=== PATIENT | female | born 1960 | race Caucasian/White ===

== ENCOUNTER → 2023-12-15 12:38 | Outpatient (REF) | payer OTHER, SELFPAY | LOC: HWRAD 12:38 | PROVIDERS: ATTENDING PHYSICIAN Nurse Practitioner Family; FAMILY PHYSICIAN Family Medicine | DX: C73 Malignant neoplasm of thyroid gland (principal); E89.0 Postprocedural hypothyroidism | CPT/HCPCS: 76536 ==

== ENCOUNTER 2024-03-22 09:12 | Emergency (ER) | payer OTHER, SELFPAY ==
[2024-03-22 09:19] VITALS: BP 124/81
--- NOTE | 2024-03-22 10:13 | ED.GENMED ---
History of Present Illness
General
Chief Complaint: Musculo-Skeletal Complaint
Source: patient
Exam Limitations: none
Time Seen by Provider: 03/22/24 09:55
Nursing documentation reviewed up to this point in time: agreed with
Travel History
Have you had any contact with someone who has COVID-19?: No
Do you have any symptoms of coronavirus? Fever > 100 degrees, chills, cough, shortness of breath, sore throat, loss of taste or smell, muscle aches, or headache?: No
History of Present Illness
History of Present Illness:
Patient is a 63-year-old [id number] female presents to the emergency department with pain in her distal left index finger after closing a door yesterday. It continues to throb and is getting worse.
Past History
Past History
ED Past Medical History: Cancer and Hypothyroidism
Social History
Tobacco: Non-smoker
Review of Systems
Review of Systems
All Other Systems: Not applicable
Phy Exam
Physical Exam
Physical Exam:
Physical Exam
General: mild distress, alert and appropriate, well nourished, well hydrated
HENT: Normocephalic, supple
Eyes: Clear sclera, conjuctiva without injection
Neuro: Alert and oriented x 3, CN II - XII intact, no motor focality, no cerebellar dysfunction
Skin: no wounds
Psychiatric: well kept. interactive and cooperative
Extremities: No edema, cyanosis. Left index finger with 10% subungual hematoma approximately with tenderness and swelling noted of the distal third. Neurovascularly tendons intact
Course
Orders/Labs/Results
Orders:
Orders
03/22/24 09:47
Finger(s)/Thumb 2 View Lt [CR Finger(s)/thumb Min 2 Vw Lt] Urgent
Comment:
Reason For Exam: slammed in door
Indicate Which Finger:: Index Finger
Vital Signs
Initial and Last Documented VS:
Initial Vital Signs
Temp Pulse Resp BP Pulse Ox
97.4 F 86 20 124/81 95
03/22/24 09:19 03/22/24 09:19 03/22/24 09:19 03/22/24 09:19 03/22/24 09:19
Last Documented Vital Signs
Temp Pulse Resp BP Pulse Ox
97.4 F 86 20 124/81 95
03/22/24 09:19 03/22/24 09:19 03/22/24 09:19 03/22/24 09:19 03/22/24 09:19
Procedures
Nail Trepanation/Felon
Method of Drainage: nail cauterized
Sterile dressing applied: Yes
Finger splint applied: No
*Radiology
Radiology exam reviewed: preliminary read by ED provider (No fracture)
*Pulse Oximetry
Patient hypoxic: no
*EKG
Interpreted by ED Provider?: NA
*Coater Operator Insulation Board Interpretation
Rate: Coater Operator Insulation Board- N/A
*Critical Care Note
Total Time (30-74mins, 75-104mins- exclusive of procedures): Not Applicable
ED Attending Note
-
Portions of this chart may have been created with voice recognition software.� Occasional wrong word or��sound alike� substitutions may have occurred due to the inherent limitations of voice recognition software.
Discharge Plan
Departure
Patient Disposition: Home (Routine Discharge)
Date of Disposition: 03/22/24
Time of Disposition: 10:17
Patient with high blood pressure during this ER visit?: No
Condition: Good
Covid-19: Not Applicable
Discharge Problem:
Subungual hematoma of finger of left hand
Instructions: Contusion (DC)
Prescriptions:
No Action
alprazolam 0.25 MG tablet
0.25 mg PO BID PRN (Reason: anxiety)
lorazepam 0.5 MG tablet
0.5 mg PO NOW PRN (Reason: anxiety)
docusate sodium 100 MG capsule
100 mg PO BID PRN (Reason: constipation)
clobetasol-emollient 30 GM cream
30 gm TP BID
adalimumab [Humira(CF) Pen [id number]] 80 MG/0.8 ML pen injector kit
40 mg SC ONCE
Patient Comments:
pt takes every two weeks
Referrals:
Christofer Elias DO [Family Provider] - As needed
Activity Restrictions/Additional Instructions:
Acetaminophen 1000 mg or ibuprofen 400 mg every 6 hours for pain. Keep elevated. Use cold for 20 to 30 minutes 4-5 times a day. The nail will eventually fall off and a nail will be growing underneath.
Interventions
Interventions:
*Risk Screen - Suicide Last Done: 03/22/24 09:19
*General Assessment Last Done: 03/22/24 09:19
*Neglect/Abuse Screening Last Done: 03/22/24 09:19
Discharge Date and Time
Print Language: NEPALI
== END 2024-03-22 10:51 | disposition home or self-care (01) ==
LOC: EMR 09:12
PROVIDERS: EMERGENCY PHYSICIAN Emergency Medicine; FAMILY PHYSICIAN Family Medicine
DX: S60.122A Contusion of left index finger with damage to nail, initial encounter (principal); W23.2XXA Caught, crushed, jammed or pinched between a moving and stationary object, initial encounter
CPT/HCPCS: 99283; 11740; 73140

== ENCOUNTER → 2024-05-12 07:35 | Outpatient (REF) | payer MEDICARE, OTHER, SELFPAY | LOC: HWRAD 07:35 | PROVIDERS: ATTENDING PHYSICIAN Physician Assistant; FAMILY PHYSICIAN Family Medicine | DX: C18.6 Malignant neoplasm of descending colon (principal) | CPT/HCPCS: 71260; 74177; Q9967 ==

== ENCOUNTER → 2024-06-29 08:05 | Outpatient (REF) | payer MEDICARE, OTHER, SELFPAY | LOC: WDC 08:05 | PROVIDERS: ATTENDING PHYSICIAN Obstetrics & Gynecology Gynecology; FAMILY PHYSICIAN Family Medicine | DX: Z12.31 Encounter for screening mammogram for malignant neoplasm of breast (principal) | CPT/HCPCS: 77063; 77067 ==

== ENCOUNTER → 2024-09-21 07:10 | Outpatient (REF) | payer MEDICARE, OTHER, SELFPAY | LOC: HWRAD 07:10 | PROVIDERS: ATTENDING PHYSICIAN Nurse Practitioner Family; FAMILY PHYSICIAN Family Medicine; REFERRING PHYSICIAN Student in an Organized Health Care Education/Training Program | DX: C73 Malignant neoplasm of thyroid gland (principal) | CPT/HCPCS: 36415; 76536 ==

== ENCOUNTER → 2025-07-03 07:22 | Outpatient (REF) | payer MEDICARE, OTHER, SELFPAY | LOC: WDC 07:22 | PROVIDERS: ATTENDING PHYSICIAN Family Medicine | DX: Z12.31 Encounter for screening mammogram for malignant neoplasm of breast (principal) | CPT/HCPCS: 77063; 77067 ==

== ENCOUNTER → 2025-08-17 13:32 | Outpatient (REF) | payer MEDICARE, OTHER, SELFPAY | LOC: RAD 13:32 | PROVIDERS: ATTENDING PHYSICIAN Nurse Practitioner Family; FAMILY PHYSICIAN Family Medicine | DX: E89.0 Postprocedural hypothyroidism (principal); C73 Malignant neoplasm of thyroid gland | CPT/HCPCS: 76536 ==